=== PATIENT | male | born 1990 | race American Indian/Alaskan Native ===

== ENCOUNTER 2019-10-04 05:09 | Emergency (ER) | payer SELFPAY ==
[2019-10-04 05:56] VITALS: BP 111/52
[2019-10-04] MEDS ORDERED: HYDROcodone/ACETAMINOPHEN 5-325 MG TAB PO ONE (11:33)
[2019-10-04] MEDS ORDERED: IBUPROFEN 800 MG TAB PO ONE (11:33)
[2019-10-04] MEDS ORDERED: SODIUM CHLORIDE 0.9% IRR 500 ML BOTTLE IR ONE (11:34)
[2019-10-04] MEDS ORDERED: LIDOCAINE (1%) 10 MG/1 ML VIAL 20 ML MDV INFILTRATI ONE (11:34)
[2019-10-04] MEDS ORDERED: BUPIVACAINE/PF (0.25%) 2.5 MG/ML 30 ML VIAL INFILTRATI ONE (11:34)
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
[2019-10-04] MEDS ORDERED: TETANUS,DIPH,PERTUSS(ACELL) VACCINE 0.5 ML SYRINGE IM ONE (11:44)
[2019-10-04] MEDS ORDERED: BUPIVACAINE/PF (0.25%) 2.5 MG/ML 10 ML VIAL INFILTRATI ONE (11:52)
[2019-10-04] MEDS ORDERED: BACITRACIN/POLYMYXIN B OINT 28.35 GM TP ONE (12:29)
--- NOTE | 2019-10-04 12:29 | XRay Report ---
RIGHT HAND, 3 VIEWS INDICATION / CLINICAL INFORMATION: ring finger laceration. COMPARISON: None available. FINDINGS: No fracture or dislocation. Soft tissue trauma is seen along the ulnar side of the PIP joint but no s ignificant radiopaque foreign object seen in the soft tissues. IMPRESSION: Other than mild soft tissue trauma, no significant abnormality. Signer Name: Vickie Weeks MD Signed: 10/04/2019 12:25 PM Workstation Name: [id number]
[2019-10-04] MEDS ORDERED: NEOMY 3.5 MG/BACIT 400 UNITS/POLY B 5000 UNITS/GM OINT PACKET TP ONE ×2 (12:32→12:33)
== END 2019-10-04 12:43 | disposition home or self-care (01) ==
LOC: ED 05:09
DX: S61.214A Laceration without foreign body of right ring finger without damage to nail, initial encounter (principal); S60.511A Abrasion of right hand, initial encounter; Y04.0XXA Assault by unarmed brawl or fight, initial encounter; Y93.89 Activity, other specified; Y92.89 Other specified places as the place of occurrence of the external cause; Y99.8 Other external cause status
CPT/HCPCS: 90471; 90715; 99283; A6250

== ENCOUNTER 2019-10-11 15:44 | Emergency (ER) | payer SELFPAY ==
[2019-10-11 16:46] VITALS: BP 116/75
--- NOTE | 2019-10-11 17:03 | Emergency Department Report ---
Suture/Staple Removal - HPI Chief Complaint: Laceration/Recheck/Suture Stated Complaint: STITCHES REMOVED Time Seen by Provider: 10/11/19 17:03 When Sutures or [facility] Placed: 10/04/2019 Wound Location: right ring finger ED Review of Systems ROS: Stated complaint: STITCHES REMOVED Other details as noted in HPI Comment: All other systems reviewed and negative ED Past Medical Hx - Past Medical History Previous Medical History?: No - Surgical History Past Surgical History?: No - Social History Smoking Status: Never Smoker Substance Use Type: None - Medications Home Medications: Home Medications Medication Instructions Recorded Confirmed Last Taken Type HYDROcodone/APAP 5-325 [[place] 1 - 2 each PO Q6HR PRN #10 tablet 10/04/19 Unkn own Rx 5/325] Ibuprofen [Motrin 800 MG tab] 800 mg PO Q8HR PRN #20 tablet 10/04/19 Unknown Rx cephALEXin [Keflex] 500 mg PO Q6HR #28 capsule 10/04/19 Unknown Rx Suture Removal Exam - Exam General: Vital signs noted. No distress. Alert and acting appropriately. Wound: No Pathologic Erythema, No Tenderness, No Drainage, No Pus Other Systems: All other systems reviewed and are unremarkable. ED Course Vital Signs 10/11/19 16:44 Temperature 98.6 F Pulse Rate 79 Respiratory 18 Rate Blood Pressure 116/75 O2 Sat by Pulse 99 Oximetry ED Recheck MDM - Medical Decision Making Patient presents for suture removal of the right ring finger that he had placed on 10/04/2019. He denies any pain, drainage, fever, swelling, any other symptoms. On exam there are 4 sutures present, 2 of the sutures are only present on one skin edge and do not approximate the skin, there is small opening present with healed skin underneath, there is no drainage, no erythema, no signs of infection. all sutures removed without difficulty. advised pt to please continue to keep area clean, dry, intact. no hot tub, no pool, no soaking in water. wash with soap and water and immediately dry. keep covered. may use neosporin or triple antibiotic ointment. follow up with a primary care doctor. return to the emergency room for any new or worsening symptoms Critical care attestation.: If time is entered above; I have spent that time in minutes in the direct care of this critically ill patient, excluding procedure time. ED Disposition Clinical Impression: Encounter for removal of sutures Disposition: DC-01 TO HOME OR SELFCARE Is pt being admited?: No Does the pt Need Aspirin: No Condition: Stable Instructions: Suture Removal (ED) Additional Instructions: please continue to keep area clean, dry, intact. no hot tub, no pool, no soaking in water. wash with soap and water and immediately dry. keep covered. may use neosporin or triple antibiotic ointment. follow up with a primary care doctor. return to the emergency room for any new or worsening symptoms Referrals: DILLON WAY MD [Staff Physician] - 2-3 Days [facility] [Outside] - 2-3 Days [facility] [Outside] - 2-3 Days Time of Disposition: 17:09 Print Language: GREENLAND[place]
== END 2019-10-11 17:15 | disposition home or self-care (01) ==
LOC: ED 15:44
DX: T14.8XXD Other injury of unspecified body region, subsequent encounter (principal); Z48.02 Encounter for removal of sutures